=== PATIENT | female | born 1970 | race Caucasian/White ===

== ENCOUNTER 2020-12-06 18:01 | Emergency (ER) | payer OTHER ==
[~2020-12-06 18:01] MED LIST: CLEOCIN HCL300 MG PO; CORTIZONE-1057 G1 TP; IBUPROFEN800 MG PO; Magic Mouth Wash PO; Voltaren Gel 1 % TOP
[2020-12-07 00:42] LABS: HEMOGLOBIN 16.2 gm/dl (12.3-15.3); RED BLOOD COUNT 5.36 M/UL (4.00-5.10); WHITE BLOOD COUNT 9.1 K/UL (4.5-11.0)
[2020-12-07 01:07] LABS: BUN/CREATININE RATIO 18 (0-10)
[2020-12-07] MEDS ORDERED: GLUCOPHAGE 500500 MG PO (01:45)
== END 2020-12-07 04:40 | disposition home or self-care (01) ==
LOC: ER1 18:01
PROVIDERS: Family Medicine
DX: R73.9 Hyperglycemia, unspecified (principal); I10 Essential (primary) hypertension; Z88.2 Allergy status to sulfonamides; Z88.1 Allergy status to other antibiotic agents
CPT/HCPCS: 80053; 82009; 82800; 82962; 85025; 96374; 99284

== ENCOUNTER → 2021-02-09 | Outpatient (CLI) | payer OTHER ==
[~2021-02-09] MED LIST changes: +GLUCOPHAGE 500500 MG PO
== END ==
LOC: EMI 13:59
DX: S09.8XXA Other specified injuries of head, initial encounter (principal); G93.89 Other specified disorders of brain; R90.82 White matter disease, unspecified; X58.XXXA Exposure to other specified factors, initial encounter
CPT/HCPCS: 70551

== ENCOUNTER → 2021-02-12 | Outpatient (CLI) | payer OTHER | LOC: DTC 13:43 | DX: E11.65 Type 2 diabetes mellitus with hyperglycemia (principal); Z71.3 Dietary counseling and surveillance | CPT/HCPCS: G0108 ==

== ENCOUNTER → 2021-04-15 | Outpatient (CLI) | payer OTHER | LOC: SLEEP 10:04 | DX: R06.83 Snoring (principal); G47.30 Sleep apnea, unspecified; F51.02 Adjustment insomnia | CPT/HCPCS: 95811 ==

== ENCOUNTER 2021-04-24 20:00 | Emergency (ER) | payer OTHER | END 2021-04-24 22:20 | disposition home or self-care (01) | LOC: ER1 20:00 | DX: S63.602A Unspecified sprain of left thumb, initial encounter (principal); S43.402A Unspecified sprain of left shoulder joint, initial encounter; E11.9 Type 2 diabetes mellitus without complications; I10 Essential (primary) hypertension; W19.XXXA Unspecified fall, initial encounter; Y92.009 Unspecified place in unspecified non-institutional (private) residence as the place of occurrence of the external cause | CPT/HCPCS: 73030; 73080; 73130; 99283 ==